=== PATIENT | female | born 1965 | race American Indian/Alaskan Native ===

== ENCOUNTER 2020-08-11 09:14 | Emergency (ER) | payer MEDICAID ==
[~2020-08-11] VITALS: Ht 152.4 cm; Wt 96.2 kg
[2020-08-11 09:26] VITALS: BP 130/85
== END 2020-08-11 09:59 | disposition home or self-care (01) ==
LOC: ER 09:14
DX: F20.9 Schizophrenia, unspecified (principal); Z76.0 Encounter for issue of repeat prescription; Z88.6 Allergy status to analgesic agent